=== PATIENT | male | born 1945 | race Caucasian/White ===

== ENCOUNTER → 2022-03-25 09:06 | Outpatient (CLI) | payer MEDICARE, BC, SELFPAY ==
--- NOTE | ~2022-03-25 | US_ITS ---
Renal-Bladder ultrasound Clinical History: Chronic kidney disease Technique: Real-time sonographic imaging of the kidneys and urinary bladder was performed. Findings: The right kidney measures 10.9 cm in length and the left kidney measures 10.7 cm. There is no hydronephrosis or renal calculus identified. Renal cortical echogenicity is within normal limits. Small bilateral renal cysts are noted. The urinary bladder is collapsed, limiting evaluation. Impression: No significant abnormality seen. Reviewed, dictated and finalized at location . OM[employer] SERVICE SALES ASSOCIATE Impression: No significant abnormality seen.
== END ==
PROVIDERS: PCP Physician Assistant; Visit Provider Internal Medicine Nephrology
DX: N18.31 Chronic kidney disease, stage 3a (principal)
CPT/HCPCS: 76775

== ENCOUNTER 2022-04-07 09:57 | Inpatient (IN) | payer MEDICARE, SELFPAY ==
[2022-04-07] VITALS (11 sets, daily range): BP systolic 127–198; BP diastolic 69–86; PULSE 64–109; RESP 14–21; TEMP 36.3–36.9; O2SAT 92–100; BMI 26.4
--- NOTE | ~2022-04-07 | NM_ITS ---
EXAMINATION: NM bone scan whole body DATE: 04/08/2022 15:35 INDICATION: Multiple pattern of sclerosis in the spine and pelvis on recent CT of the abdomen and pel vis. TECHNIQUE: 25.7 mCi Tc-99m HDP was administered intravenously. Delayed whole-body scintigrams were o btained. COMPARISON: CT abdomen pelvis dated 04/07/2022 FINDINGS: Typical pattern of mild joint centered uptake at the bilateral sternoclavicular, acromioclavicular an d elbow joints. Mild uptake at the anterolateral margin of the L5-S1 disc space and at the lateral ma rgins of a few of the lower thoracic disc spaces with corresponding bridging or nearly bridging osteo phytes consistent with diffuse idiopathic skeletal hyperostosis (DISH). No other suspicious foci of a bnormal bone activity or more diffuse abnormal increased uptake in the bone relative to the soft tiss ue to suggest metastatic disease. IMPRESSION: 1. No suspicious foci of abnormal bone activity or more diffuse abnormal increase bone uptake to sugg est metastatic disease. Reviewed, dictated and finalized at location A. OR BEAUTY SALON ASSISTANT IMPRESSION: 1. No suspicious foci of abnormal bone activity or more diffuse abnormal increa se bone uptake to suggest metastatic disease.
--- NOTE | ~2022-04-07 | US_ITS ---
EXAMINATION: US renal BI DATE: 04/08/2022 11:12 INDICATION: Acute renal insufficiency TECHNIQUE: Multiple ultrasound grayscale images of the kidneys were obtained. COMPARISON: 03/25/[address] dated 04/07/2022 FINDINGS: The right kidney measures 10.4 x 5.4 x 6.1 cm. The left kidney measures 11.1 x 6.2 x 5.7 cm. The kidn eys demonstrate normal echogenicity. Bilateral anechoic renal cysts the largest on the left measuring 2.5 cm and a smaller on the right measuring and 1.0 cm . There is no hydronephrosis in either kidney . No stones identified. The bladder is normal. IMPRESSION: 1. Bilateral renal cysts. Otherwise normal kidneys without hydronephrosis. Reviewed, dictated and finalized at location A. E SAMPLE AND PATTERN SUPERVISOR
--- NOTE | ~2022-04-07 | CT_ITS ---
EXAMINATION: CT abdomen pelvis wo con DATE: 04/07/2022 11:18 INDICATION: History of Crohn's disease. Abdomen pain. TECHNIQUE: Computed tomography (CT) of the abdomen and pelvis was performed without intravenous contr ast. The dose-length product was 351.70 mGy-cm. Automated exposure control and iterative reconstructi on technique were employed. COMPARISON: None. FINDINGS: There is abnormal thickening of the gastric antrum, pylorus and duodenum with mild surround ing inflammation, possibly related to patient's known Crohn's disease. No obstruction. There is a rig ht lower abdominal wall ileostomy. There are gallstones. Dependent atelectasis. Heart size normal. No significant pleural or pericardial effusion. Calcified g ranuloma in the left lower lobe. The liver, spleen, pancreas, adrenal glands and kidneys are unremarkable. Nonobstructive bowel patter n. No abnormal pelvic masses or fluid collections. There is a diffuse mottled appearance to the spine and sacrum. This may relate to demineralization, although metastatic disease is not excluded. IMPRESSION: 1. Abnormal thickening of the distal aspect of the stomach and duodenum, suspicious for inflammatory changes secondary to known Crohn's disease. No evidence for perforation or abscess. 2: Diffuse abnormal mottled appearance to the spine and pelvis, suspicious for metastatic disease. 3: Cholelithiasis Reviewed, dictated and finalized at location L. STANT BASEBALL COACH IMPRESSION: 1. Abnormal thickening of the distal aspect of the stomach and duodenum, suspic ious for inflammatory changes secondary to known Crohn's disease. No evidence f or perforation or abscess. 2: Diffuse abnormal mottled appearance to the spine and pelvis, suspicious for metastatic disease. 3: Cholelithiasis
--- NOTE | 2022-04-07 10:17 | ED.ABDPAIN ---
HPI - Abdominal Pain General Chief Complaint: Abdominal Pain Stated Complaint: vomiting solid foods Time Seen by Provider: 04/07/22 10:01 Source: patient and family Mode of arrival: ambulatory Limitations: no limitations History of Present Illness HPI narrative: Patient is a 76-year-old male with a history of hypertension, hyperlipidemia, Crohn's disease, history of colon resection and current ileostomy, presenting to the emergency department for evaluation of abdominal pain, intermittent nausea and vomiting. Pain has been intermittent over the past 72 hours, patient reports cramping type pain that comes and goes spontaneously. Not associate with eating. He has had decreased oral intake secondary to the nausea as well as presence of vomiting with dark-colored emesis. Patient reports stool has been dark in coloration. Patient denies history of GI bleed. He denies fever, chills, lightheadedness or dizziness. No chest pain or palpitations. No dyspnea. No cough. Patient denies any significant abdominal distention. He has had normal output from the ostomy although it is dark in coloration. He denies history of chronic anticoagulation. Patient does not follow with gastroenterology or colorectal physician. States that he had ileostomy placed in 1997, has done well since that time without any acute issues. He is not on any maintenance medications. Related Data Home Medications Medication Instructions Recorded Confirmed atorvastatin 10 mg tablet 10 mg PO DAILY 02/21/22 04/07/22 carvedilol 25 mg tablet 25 mg PO DAILY 02/21/22 04/07/22 fenofibrate nanocrystallized 145 145 mg PO DAILY 02/21/22 04/07/22 mg tablet multivitamin 1 tablet PO DAILY 04/07/22 04/07/22 Allergies Allergy/AdvReac Type Severity Reaction Status Date / Time No Known Allergies Allergy Verified 04/07/22 13:47 Review of Systems Review of Systems: CONSTITUTIONAL: Denies fever, chills, or sweats. EYES: Denies visual changes, redness, or discharge. ENT: Denies rhinorrhea, congestion, sore throat, or otalgia. CARDIOVASCULAR: Denies chest pain, palpitations, or edema. RESPIRATORY: Denies cough or dyspnea. GASTROINTESTINAL: Reports intermittent abdominal pain, nausea and vomiting, reports dark-colored stool GENITOURINARY: Denies dysuria or hematuria. SKIN: Denies rash or itching. MUSCULOSKELETAL: Denies back pain, joint pain, or myalgia. NEUROLOGIC: Denies headache, numbness, or weakness. [facility] Past Medical History Medical History (Updated 04/07/22 @ 12:38 by Denisa Hickey NP) Chronic kidney disease, stage 3a Crohn disease Hyperlipidemia Hypertension Perianal fistula due to Crohn's disease fistula repair times 8 Surgical History Surgical History (Updated 04/07/22 @ 12:39 by Denisa Hickey NP) Cataract extraction status H/O ileostomy History of appendectomy History of colon resection Family History Family History Father Diabetes mellitus Hypertension Grandparent Heart problem Hypertension Social History Social History (Updated 04/07/22 @ 12:41 by Denisa Hickey NP) Social History: lives with his she is poa .retired from at and [employer]. children 1. alcohol occ 1-2 beers a day code status : full code Smoking packs per day: 1 Smoking cigarettes per day: 20.0 Years smoked: 30 Smoking pack-years: 30.00 Smoking status: Former smoker Tobacco type: cigarettes Smoking end date: 03/16/02 Alcohol intake: current Drinks per week: 4 Substance use: never Lack of Transportation: No Lack of Food: Never True Current Housing: I Have Housing Concerned About Future Housing: No Difficulty Paying Gas/Electric Bills: No Difficulty Paying for Meds: No Currently Unemployed: No Education: High School Diploma/GED Difficulty w/ Childcare or Family Care: No Gender identity (if verbalized by the patient): Male Sexual Orientation (if Verbaliz
[2022-04-07 10:31] LABS: Basophils Percent Auto 0.1 % (0.2-1.2); Hematocrit 51.7 % (42.0-52.0); Hemoglobin 18.5 g/dL (14.0-18.0); Immature Granulocyte Absolute 0.06 K/mm3 (0.00-0.031); Immature Granulocyte Percent A 0.4 % (0-0.5); Lymphocytes Absolute Auto 1.28 K/mm3 (0.9-3.2); Lymphocytes Percent Auto 7.9 % (18.3-44.2); Mean Corpuscular HGB Conc 35.8 g/dl (32-36); Mean Corpuscular Volume 86.7 fl (80-100); Mean Platelet Volume 9.2 fl (7.4-10.4); Monocytes Absolute Auto 1.2 K/mm3 (0.1-0.6); Monocytes Percent Auto 7.1 % (2.6-8.5); Neutrophils Absolute Auto 13.7 K/mm3 (1.3-6.7); Neutrophils Percent Auto 84.5 % (45.5-73.1); Platelet Count Result 243 k/mm3 (150-375); Red Blood Count 5.96 M/mm3 (4.6-6.20); Red Cell Distribution Width 12.6 % (11.5-14.5); White Blood Count 16.3 K/mm3 (4.5-10.0)
[2022-04-07 10:47] LABS: Alanine Aminotransferase 28 U/L (6-50); Albumin Level 5.3 g/dL (3.5-5.1); Alkaline Phosphatase 79 U/L (38-126); Anion Gap 17 mmol/L (8-16); Aspartate Amino Transferase 31 U/L (17-59); Bilirubin,Total 0.9 mg/dL (0.2-1.3); Blood Urea Nitrogen 92 mg/dL (9-20); Calcium 9.2 mg/dL (8.4-10.2); Carbon Dioxide 11 mmol/L (22-30); Chloride 97 mmol/L (98-107); Estimated CRCL calculation 20 ml/min; Estimated Glomerular Filt Rate 23; Glucose 201 mg/dL (65-110); Lipase 219 U/L (23-300); Sodium 125 mmol/L (137-145)
[2022-04-07] MEDS: SODIUM CHLORIDE 0.9% IV 1,000 ML 999 ML IV CONT (11:01)
--- NOTE | 2022-04-07 11:15 | PC.NURSE ---
Report received from SOPHIA Hartman. Pt off floor to CT scan
[2022-04-07 11:33] LABS: Appearance Urine Clear (Clear); Bilirubin Urine Negative (Negative); Blood Urine Trace-lysed (Negative); Color Urine Yellow (Yellow); Glucose Urine UA Trace mg/dL (Negative); Ketones Urine Negative (Negative); Leukocyte Esterase Ur Negative LEU/UL (Negative); Nitrate Urine Negative (Negative); Protein Urine Trace mg/dL (Negative); Specific Grav Ur 1.015 (1.001-1.035); Urobilinogen Urine 0.2 mg/dL (<2.0); pH Urine 5.5 (5.0-9.0)
[2022-04-07 11:41] LABS: RBC Urine 0-2 /hpf (0-2); WBC Urine 0-3 /hpf
[2022-04-07 12:13] LABS: SARS-CoV-2 RNA PCR Negative
[2022-04-07 12:23] LABS: Add Urine Microscopic? YES
--- NOTE | 2022-04-07 12:33 | PM.IMHP ---
H&P: HPI History of Present Illness Date/Time: 04/07/22 12:33 Chief Complaint: Abdominal pain Narrative: This is a 76 year old male patient patient who has a hx of hypertension, hyperlipidemia, and crohns diseasse He also has a history of crf and sees a meat packager. He has a history of colon resection and current ileostomy. Over the last 72 hours he has complained of cramping type of abdomenal pain.He has been having emesis that is dark colored. he does not take any anticoagulation. The patient has had an ileostomy since 1997 has not been back to the GI doctor. The patient stated that he purposely lost 30 lb by using a a low carb diet. Me your to lose 30 lb. The patient has had poor oral intake due to the nausea. His white count is 16.3. Sodium was 125. Chloride 97 anion gap 17 BUN 92 and creatinine 2.7. According to Dr. Chacon cells note on 03/17/2022 patient's creatinine was 1.61 and GFR 42. The patient was given 2 L of IV fluids and his p.o. Coreg that was due this morning. Patient is negative for COVID. CT of the abdomen pelvis was read as the following . Abnormal thickening of the distal aspect of the stomach and duodenum, suspicious for inflammatory changes secondary to known Crohn's disease. No evidence for perforation or abscess. 2: Diffuse abnormal mottled appearance to the spine and pelvis, suspicious for metastatic disease. 3:? CholelithiasisThe patient is being admitted to inpatient services on the date of service of 04/07/2022 Review of Systems Review of Systems: See HPI All systems reviewed & are unremarkable except as noted in HPI and below Constitutional: Constitutional: Reports as per HPI and Reports no additional constitutional complaints Eyes: Eyes: Reports as per HPI and Reports no additional eye complaints ENT: Reports system reviewed and no additional complaints, except as documented and Reports Normal hearing present Cardiovascular: Cardiovascular: Reports no additional cardiovascular complaints Respiratory: Respiratory: Reports no additional respiratory complaints and Reports no additional respiratory complaints Gastrointestinal: Gastrointestinal: Reports as per HPI and Reports no additional gastrointestinal complaints Musculoskeletal: Musculoskeletal: Reports no additional musculoskeletal complaints Integumentary/Breasts: Skin/Breast: Reports system reviewed and no additional complaints, except as docu and Reports as per HPI Neurologic: Reports system reviewed and no additional complaints, except as documented, Reports as per HPI and Reports Normal hearing present Psychiatric: Psychiatric: Reports no additional psychiatric complaints and Reports as per HPI Endocrine: Endocrine: Reports no additional endocrine complaints Hematologic/Lymphatic: Hematologic/Lymphatic: Reports no additional hematologic/lymphatic complaints Allergic/Immunologic: Allergic/Immunologic: Reports no additional allergic/immunologic complaints [facility] Past Medical History Medical History (Updated 04/07/22 @ 14:50 by Denisa Hickey NP) Chronic kidney disease, stage 3a Crohn disease Hyperlipidemia Hypertension Perianal fistula due to Crohn's disease fistula repair times 8 Surgical History Surgical History Cataract extraction status H/O ileostomy History of appendectomy History of colon resection Family History Family History Father Diabetes mellitus Hypertension Grandparent Heart problem Hypertension Social History Social History (Updated 04/07/22 @ 14:40 by Denisa Hickey NP) Social History: He lives with his and she is poa .He is retired from [employer]. He has 1 child . He drinks 1-2 beers a day. code status : full code Smoking packs per day: 1 Smoking cigarettes per day: 20.0 Years smoked: 30 Smoking pack-years: 30.00 Smoking status: Former smoker Tobacco type: ci
[2022-04-07 13:08] LABS: Lactic Acid Reflex 1.7 mmol/L (0.7-2.0)
--- NOTE | 2022-04-07 13:25 | PC.NURSE ---
This patient, Jayy Collins, was admitted to 3 Med Surg Room 305-02. Patient/family oriented to hospital policies and general routines including ID bracelet, bed and alarms, visiting hours, pain management, procedures, bathroom and other care routines, personal items, smoking policy, room service/diet, and visiting hours. Information on how to activate the Rapid Response Team has been discussed. Patient/Family are encouraged to report perceived risks to care and to ask questions if they do not understand what they are told or what they should do.
[2022-04-07 13:26] LABS: Reflex Lactic Acid Yes or No Add Lactic
[2022-04-07] MEDS: LACTATED RINGERS 1,000 ML 125 ML IV CONT ×2 (14:27→21:49)
--- NOTE | 2022-04-07 14:37 | PM.CNNEP ---
Assessment and Plan Assessment and plan (1) LAILA (acute kidney injury): Code(s): N17.9 - Acute kidney failure, unspecified Status: Acute Assessment and Plan: history would suggest volume depletion/dehydration kidney function may have worsened with ongoing use of JUAN ALBERTO-I as well imaging without any obstruction check urine electrolytes, urine eosinophils and CPK continue IVF hydration follow repeat labs and UOP (2) Chronic kidney disease, stage 3a: Code(s): N18.31 - Chronic kidney disease, stage 3a Status: Chronic Assessment and Plan: apparently present as far back as 2014 baseline creatinine seems to run around 1. 4 - 1.6mg/dl although creatinine went as high as 2.0mg/dl in January 2022 which prompted referral to Dr. Manzanares presumably due to HTN and vascular disease based on outpatient evaluation (negative serologies and normal renal u/s) (3) Hyponatremia: Code(s): E87.1 - Hypo-osmolality and hyponatremia Status: Acute Assessment and Plan: as noted by admission labs likely secondary to hypovolemia follow trend with IVF resuscitation (4) Hypertension: Code(s): I10 - Essential (primary) hypertension Status: Acute Assessment and Plan: holding lisinopril for now remains on carvedilol follow trend of hemodyamics (5) Nausea vomiting and diarrhea: Code(s): R11.2 - Nausea with vomiting, unspecified; R19.7 - Diarrhea, unspecified Status: Acute Assessment and Plan: clinical improvement noted IVFs and IV antiementics as needed Will continue to follow. History of Present Illness Reason for Consult Consult date: 04/07/22 Reason for consult: acute renal failure (on chronic renal failure) Chief Complaint Chief complaint: gastritis,dehydration History of Present Illness Narrative: The patient is a 76-year-old male with a past medical history as outlined below who presented to [facility] Emergency room for further evaluation of nausea, vomiting, and abdominal pain. The patient states that for the last 2-3 days he has had nausea, vomiting, and diarrhea in association with abdominal pain. He also reports having dark-colored emesis as well. Along with the a for mentioned nausea and vomiting, he has had poor oral intake as well. Given the persistence of the symptoms despite conservative therapy, he presented to the emergency room for further assessment. Workup and evaluation emergency room demonstrated his CBC to be significant for an elevated white blood cell count of 16.3 as well as chemistry results that showed an elevated BUN and creatinine above his baseline in association with hyponatremia. Due to concerns for possible volume depletion, he received significant IV fluids in the emergency room as well as maintenance IV fluids. His testing from influenza and coping 19 were negative. He did undergo a CT scan of his abdomen pelvis given his GI symptoms which demonstrated inflammatory changes thought to be secondary to his known Crohn's disease with no evidence of perforation, abscess, or acute infection. There was the concerning finding of diffuse abnormal mottledl appearance of the spine and pelvis suspicious for metastatic disease. Given his constellation of symptoms as well as the aforementioned laboratory findings and imaging studies, he was admitted the hospital for further evaluation and therapy. Since admission, he states that he feels significantly better following the IV fluids and IV antiemetics that he has received. At the time my visit, he appears to be tolerating a clear liquid diet without any issues or problems related to nausea vomiting or diarrhea. Renal consultation was requested due to his acute kidney injury on top of his baseline kidney disease. The patient just recently established care with Dr. Brandon Manzanares with regard to management of his chronic kidney disease with a baseline c
[2022-04-07 14:59] LABS: Lactic Acid 1.9 mmol/L (0.7-2.0)
[2022-04-07] MEDS: carvediloL 25 MG TABLET PO (15:34)
[2022-04-07 19:19] LABS: Creatinine Urine 84.9 mg/dL; Total Protein Urine Random 11 mg/dL; Urea Random Urine 1127 MG/DL
[2022-04-07 19:34] LABS: Sodium Urine Random < 5 meq/L
[2022-04-07 19:35] LABS: Ur Ttl Prot Creatinine Ratio < 0.13 mg/mg (0-0.20)
[2022-04-07 19:38] LABS: Eosinophil Urine None Seen % (None Seen)
[2022-04-07 19:41] LABS: Urine Eos QC 2nd Tech Confirmed
[2022-04-07] MEDS: FAMOTIDINE 20 MG/2 ML VIAL IV PUSH (21:49)
[2022-04-08] VITALS (10 sets, daily range): BP systolic 128–155; BP diastolic 60–68; PULSE 58–83; RESP 16–20; TEMP 36.1–36.6; O2SAT 100
[2022-04-08] MEDS: LACTATED RINGERS 1,000 ML 125 ML IV CONT (05:57)
[2022-04-08 07:50] LABS: Creatinine Urine 81.5 mg/dL
[2022-04-08] MEDS: FAMOTIDINE 20 MG/2 ML VIAL IV PUSH ×2 (08:28→20:12)
[2022-04-08] MEDS: carvediloL 25 MG TABLET PO (08:28)
[2022-04-08 08:31] LABS: Basophils Percent Auto 0.5 % (0.2-1.2); Eosinophils Absolute Auto 0.1 K/mm3 (0-0.3); Eosinophils Percent Auto 0.6 % (0-4.4); Hematocrit 41.9 % (42.0-52.0); Hemoglobin 14.9 g/dL (14.0-18.0); Immature Granulocyte Absolute 0.02 K/mm3 (0.00-0.031); Immature Granulocyte Percent A 0.2 % (0-0.5); Lymphocytes Absolute Auto 1.42 K/mm3 (0.9-3.2); Lymphocytes Percent Auto 16.1 % (18.3-44.2); Mean Corpuscular HGB Conc 35.6 g/dl (32-36); Mean Corpuscular Hemoglobin 31.1 pg (26-34); Mean Corpuscular Volume 87.5 fl (80-100); Neutrophils Absolute Auto 6.3 K/mm3 (1.3-6.7); Neutrophils Percent Auto 71.6 % (45.5-73.1); Platelet Count Result 175 k/mm3 (150-375); Red Blood Count 4.79 M/mm3 (4.6-6.20); Red Cell Distribution Width 12.6 % (11.5-14.5); White Blood Count 8.8 K/mm3 (4.5-10.0)
[2022-04-08 08:50] LABS: Albumin Level 3.9 g/dL (3.5-5.1); Anion Gap 7 mmol/L (8-16); Blood Urea Nitrogen 74 mg/dL (9-20); Calcium 8.5 mg/dL (8.4-10.2); Carbon Dioxide 19 mmol/L (22-30); Chloride 105 mmol/L (98-107); Estimated CRCL calculation 27 ml/min; Estimated Glomerular Filt Rate 33; Glucose 94 mg/dL (65-110); Phosphorus 3.5 mg/dL (2.5-4.5); Potassium 4.4 mmol/L (3.4-5.0); Sodium 131 mmol/L (137-145)
[2022-04-08 09:10] LABS: Creatine Kinase 156 U/L (55-170); Lactate Dehydrogenase 141 U/L (120-246); Lipase 867 U/L (23-300)
[2022-04-08 09:22] LABS: Hemoglobin A1C 5.6 % (<5.7)
[2022-04-08 09:46] LABS: Thyroid Stimulating Hormone Reflex 0.396 uIU/mL (0.465-4.68)
--- NOTE | 2022-04-08 10:10 | P.PNIM_ITS ---
Progress Note: A&P Assessment and Plan (1) LAILA (acute kidney injury): Code(s): N17.9 - Acute kidney failure, unspecified Status: Acute Assessment and Plan: Acute on chronic. Patient with history of stage IIIA CKD with baseline creatinine around 1.4-1.6 per nephrology * Patient presented with complaints of diarrhea and 4 days of decreased oral intake, making dehydration most likely etiology * Will obtain renal ultrasound * Hold lisinopril * Creatinine has improved with IV fluids from 2.7 on presentation to 2.0 today. BUN trending down * Appreciate nephrology consultation * Monitor renal function closely (2) Nausea vomiting and diarrhea: Code(s): R11.2 - Nausea with vomiting, unspecified; R19.7 - Diarrhea, unspecified Status: Acute Assessment and Plan: Ongoing for 4 days prior to presentation * Resolved at this time and patient is tolerating clear liquids * CT of the abdomen/pelvis on presentation showed abnormal thickening of the distal aspect of the stomach and duodenum suspicious for inflammatory changes secondary to Crohn's disease. * Appreciate GI recommendations * Continue with IV fluid rehydration * Clear liquids as tolerated. Advance diet per GI recommendation * Infectious etiology considered and patient had marked leukocytosis on presenta tion, however this resolved without intervention and symptoms secondary to Crohn's disease more likely (3) Crohn disease: Code(s): K50.90 - Crohn's disease, unspecified, without complications Status: Acute Assessment and Plan: Patient is s/p colon resection and ileostomy in 1997 * He no longer follows with GI it is not maintained on any medications for Crohn's disease * CT scan with findings in the stomach and duodenum consistent with Crohn's as above * Appreciate GI consultation (4) Dark stools: Code(s): R19.5 - Other fecal abnormalities Status: Acute Assessment and Plan: Patient reported dark black, tarry stools prior to presentation * Concern for GI bleed in the setting of inflammatory findings in the stomach and duodenum * Obtain stool occult blood test * Appreciate GI recommendations * Patient is not anemic. H&H stable, however initial readings likely hemoconcentrated. Continue to monitor (5) Hyponatremia: Code(s): E87.1 - Hypo-osmolality and hyponatremia Status: Acute Assessment and Plan: Acute, likely secondary to dehydration * Sodium 125 on presentation * Improved to 131 this morning following IV fluid rehydration * Continue to trend sodium to ensure correcting at appropriate rate * Appreciate nephrology assistance (6) Abnormal CT of spine: Code(s): R93.7 - Abnormal findings on diagnostic imaging of other parts of musculoskeletal system Status: Acute Assessment and Plan: CT of the abdomen/pelvis revealed diffusely mottled appearance of the spine sacrum which may be related to demineralization with metastatic disease not excludable * Patient with no known malignancy * Patient denies weight loss, night sweats, other concerning symptoms. Reports intermittent, nonspecific back pain * Will check calcium and vitamin D levels * Check PSA * Proceed with nuclear medicine bone scan * Consider oncology evaluation based on results (7) Acute dehydration: Code(s): E86.0 - Dehydration Status: Acute Assessment and Plan: As noted above * Continue with IV fluid rehydration * Patient is tolerating clear liquids. Advance diet as tolerated pe
--- NOTE | 2022-04-08 10:10 | PM.IMPN ---
Progress Note: A&P Assessment and Plan (1) LAILA (acute kidney injury): Code(s): N17.9 - Acute kidney failure, unspecified Status: Acute Assessment and Plan: Acute on chronic. Patient with history of stage IIIA CKD with baseline creatinine around 1.4-1.6 per nephrology Patient presented with complaints of diarrhea and 4 days of decreased oral intake, making dehydration most likely etiology Will obtain renal ultrasound Hold lisinopril Creatinine has improved with IV fluids from 2.7 on presentation to 2.0 today. BUN trending down Appreciate nephrology consultation Monitor renal function closely (2) Nausea vomiting and diarrhea: Code(s): R11.2 - Nausea with vomiting, unspecified; R19.7 - Diarrhea, unspecified Status: Acute Assessment and Plan: Ongoing for 4 days prior to presentation Resolved at this time and patient is tolerating clear liquids CT of the abdomen/pelvis on presentation showed abnormal thickening of the distal aspect of the stomach and duodenum suspicious for inflammatory changes secondary to Crohn's disease. Appreciate GI recommendations Continue with IV fluid rehydration Clear liquids as tolerated. Advance diet per GI recommendation Infectious etiology considered and patient had marked leukocytosis on presentation, however this resolved without intervention and symptoms secondary to Crohn's disease more likely (3) Crohn disease: Code(s): K50.90 - Crohn's disease, unspecified, without complications Status: Acute Assessment and Plan: Patient is s/p colon resection and ileostomy in 1997 He no longer follows with GI it is not maintained on any medications for Crohn's disease CT scan with findings in the stomach and duodenum consistent with Crohn's as above Appreciate GI consultation (4) Dark stools: Code(s): R19.5 - Other fecal abnormalities Status: Acute Assessment and Plan: Patient reported dark black, tarry stools prior to presentation Concern for GI bleed in the setting of inflammatory findings in the stomach and duodenum Obtain stool occult blood test Appreciate GI recommendations Patient is not anemic. H&H stable, however initial readings likely hemoconcentrated. Continue to monitor (5) Hyponatremia: Code(s): E87.1 - Hypo-osmolality and hyponatremia Status: Acute Assessment and Plan: Acute, likely secondary to dehydration Sodium 125 on presentation Improved to 131 this morning following IV fluid rehydration Continue to trend sodium to ensure correcting at appropriate rate Appreciate nephrology assistance (6) Abnormal CT of spine: Code(s): R93.7 - Abnormal findings on diagnostic imaging of other parts of musculoskeletal system Status: Acute Assessment and Plan: CT of the abdomen/pelvis revealed diffusely mottled appearance of the spine sacrum which may be related to demineralization with metastatic disease not excludable Patient with no known malignancy Patient denies weight loss, night sweats, other concerning symptoms. Reports intermittent, nonspecific back pain Will check calcium and vitamin D levels Check PSA Proceed with nuclear medicine bone scan Consider oncology evaluation based on results (7) Acute dehydration: Code(s): E86.0 - Dehydration Status: Acute Assessment and Plan: As noted above Continue with IV fluid rehydration Patient is tolerating clear liquids. Advance diet as tolerated per GI recommendations (8) Hypertension: Code(s): I10 - Essential (primary) hypertension Status: Acute Assessment and Plan: Blood pressures are reasonably controlled Continue home carvedilol Lisinopril on hold due to LAILA Monitor BP trends Plan Discussed case with supervising physician Time Spent With Patient Time: 50 minutes on this encounter Time with patient: Greater than 35 minutes Subjective Date/t
[2022-04-08 10:55] LABS: Calcium 8.7 mg/dL (8.4-10.2)
[2022-04-08 11:15] LABS: Vitamin D 25 Hydroxy 28.9 ng/mL
[2022-04-08 11:39] LABS: Prostate Specific Antigen 0.6 ng/mL (< OR = 4.0)
--- NOTE | 2022-04-08 12:13 | PM.PNNEP ---
Progress Note: A&P Assessment and Plan (1) LAILA (acute kidney injury): Code(s): N17.9 - Acute kidney failure, unspecified Status: Acute Assessment and Plan: improving history would suggest volume depletion/dehydration kidney function may have worsened with ongoing use of JUAN ALBERTO-I as well imaging without any obstruction evaluation to date: renal ultrasound without obstruction urine electrolytes are prerenal urine eosinophils negative CPK normal wean off IVF hydration as ora intake improved holding lisinopril for now follow repeat labs and UOP (2) Chronic kidney disease, stage 3a: Code(s): N18.31 - Chronic kidney disease, stage 3a Status: Chronic Assessment and Plan: apparently present as far back as 2014 baseline creatinine seems to run around 1. 4 - 1.6mg/dl although creatinine went as high as 2.0mg/dl in January 2022 which prompted referral to Dr. Manzanares presumably due to HTN and vascular disease based on outpatient evaluation (negative serologies and normal renal u/s) (3) Hyponatremia: Code(s): E87.1 - Hypo-osmolality and hyponatremia Status: Acute Assessment and Plan: resolved as noted by admission labs likely secondary to hypovolemia follow trend with IVF resuscitation (4) Nausea vomiting and diarrhea: Code(s): R11.2 - Nausea with vomiting, unspecified; R19.7 - Diarrhea, unspecified Status: Acute Assessment and Plan: clinical improvement noted suspect viral gastroenteritis IVFs and IV antiementics as needed (5) Hypertension: Code(s): I10 - Essential (primary) hypertension Status: Acute Assessment and Plan: holding lisinopril for now remains on carvedilol follow trend of hemodyamics Will continue to follow. Subjective Date/time seen: 04/08/22 12:13 Nausea and vomiting appears to be doing better in general; tolerating oral intake without any further issues or problems; renal function continues to slowly improve with current interventions; no issues/events overnight or earlier this AM; no apparent distress noted. Exam Narrative: General: WD/WN male in NAD Heart: normal S1 and S2; no rub Lungs: clear to auscultation Abdomen: soft, nontender, nondistended, positive bowel sounds Extremities: no cyanosis or clubbing; no edema Skin: warm and dry Objective Data Vital Signs Vital Signs: Vital Signs Temp Pulse Resp BP Pulse Ox O2 Del Method 04/08/22 12:00 58 L 04/08/22 08:00 61 04/08/22 08:00 Room Air 04/08/22 08:28 65 04/08/22 06:00 97.0 F L 76 16 155/68 H 100 04/08/22 04:00 68 04/08/22 00:00 83 04/07/22 20:00 77 16 100 Room Air 04/07/22 22:00 97.8 F 77 16 151/69 H 100 04/07/22 20:00 64 Intake/Output Intake/Output: Intake & Output 04/05/22 04/06/22 04/07/22 04/08/22 23:59 23:59 23:59 23:59 Intake Total 2770 2440 Output Total 650 Balance 2770 1790 Meds/Results Medications: Active Medications Generic Name Dose Route Start Last Admin Trade Name Freq PRN Reason Stop Dose Admin Acetaminophen 650 mg 04/07/22 12:18 Acetaminophen 325 Mg Tablet PO Q4H PRN Mild Pain (1-3) or Fever Atorvastatin Calcium 10 mg 04/09/22 09:00 Atorvastatin 10 Mg Tablet PO DAILY BRIAN Carvedilol 25 mg 04/08/22 09:00 04/08/22 08:28 Carvedilol 25 Mg Tablet PO 25 mg DAILY BRIAN Administration Famotidine 20 mg 04/07/22 21:00 04/08/22 08:28 Famotidine 20 Mg/2 Ml Vial IV PUSH 20 mg Q12HR BRIAN Administration Fenofibrate 145 mg 04/09/22 09:00 Fenofibrate Nanocrystallized 145 Mg Tablet PO DAILY BRIAN Lactated Ringer's 1,000 mls @ 100 mls/hr 04/07/22 12:20 04/08/22 16:52 Lr - Lactated Ringers Iv IV CONT 100 mls/hr .Q10H BRIAN Administration Ondansetron HCl 4 mg 04/07/22 12:18 Ondansetron Inj 4 Mg/2 Ml Vial IV PUSH
--- NOTE | 2022-04-08 12:13 | P.PNNP_ITS ---
Progress Note: A&P Assessment and Plan (1) LAILA (acute kidney injury): Code(s): N17.9 - Acute kidney failure, unspecified Status: Acute Assessment and Plan: * improving * history would suggest volume depletion/dehydration * kidney function may have worsened with ongoing use of JUAN ALBERTO-I as well * imaging without any obstruction * evaluation to date: * renal ultrasound without obstruction * urine electrolytes are prerenal * urine eosinophils negative * CPK normal * wean off IVF hydration as ora intake improved * holding lisinopril for now * follow repeat labs and UOP (2) Chronic kidney disease, stage 3a: Code(s): N18.31 - Chronic kidney disease, stage 3a Status: Chronic Assessment and Plan: * apparently present as far back as 2014 * baseline creatinine seems to run around 1. 4 - 1.6mg/dl * although creatinine went as high as 2.0mg/dl in January 2022 which pr ompted referral to Dr. Manzanares * presumably due to HTN and vascular disease based on outpatient evaluation (negative serologies and normal renal u/s) (3) Hyponatremia: Code(s): E87.1 - Hypo-osmolality and hyponatremia Status: Acute Assessment and Plan: * resolved * as noted by admission labs * likely secondary to hypovolemia * follow trend with IVF resuscitation (4) Nausea vomiting and diarrhea: Code(s): R11.2 - Nausea with vomiting, unspecified; R19.7 - Diarrhea, unspecified Status: Acute Assessment and Plan: * clinical improvement noted * suspect viral gastroenteritis * IVFs and IV antiementics as needed (5) Hypertension: Code(s): I10 - Essential (primary) hypertension Status: Acute Assessment and Plan: * holding lisinopril for now * remains on carvedilol * follow trend of hemodyamics Will continue to follow. Subjective Date/time seen: 04/08/22 12:13 Nausea and vomiting appears to be doing better in general; tolerating oral intake without any further issues or problems; renal function continues to slowly improve with current interventions; no issues/events overnight or earlier this AM; no apparent distress noted. Exam Narrative: General: WD/WN male in NAD Heart: normal S1 and S2; no rub Lungs: clear to auscultation Abdomen: soft, nontender, nondistended, positive bowel sounds Extremities: no cyanosis or clubbing; no edema Skin: warm and dry Objective Data Vital Signs Vital Signs: Vital Signs Temp Pulse Resp BP Pulse Ox O2 Del Method 04/08/22 12:00 58 L 04/08/22 08:00 61 04/08/22 08:00 Room Air 04/08/22 08:28 65 04/08/22 06:00 97.0 F L 76 16 155/68 H 100 04/08/22 04:00 68 04/08/22 00:00 83 04/07/22 20:00 77 16 100 Room Air 04/07/22 22:00 97.8 F 77 16 151/69 H 100 04/07/22 20:00 64 Intake/Output Intake/Output: Intake & Output 04/05/22 04/06/22 04/07/22 04/08/22 23:59 23:59 23:59 23:59 Intake Total 2770 2440 Output Total 650 Balance 2770 1790 Meds/Results Medications: Active Medications Generic Name Dose Route Start Last Admin Trade Name Freq PRN Reason Stop D
[2022-04-08 13:13] LABS: Free T4 Free Thyroxine Reflex 1.34 ng/dL (0.78-2.19)
[2022-04-08 14:32] LABS: IFOB Positive Control Positive; Immunochemical Fecal Occult Bl Negative (N)
--- NOTE | 2022-04-08 16:04 | WPDGICN ---
Assessment and Plan Assessment and plan (1) Nausea vomiting and diarrhea: Code(s): R11.2 - Nausea with vomiting, unspecified; R19.7 - Diarrhea, unspecified Status: Acute Assessment and Plan: probably gastroenteritis, already feeling better and no more nausea he says that has not had any problem with Crohn's since his surgery and has not been on medical treatment gi prophylaxis, iv fluids will advance diet we can do EGD as outpatient given inflammation by CT scan (report of dark emesis however h/h is normal- actually hemoconcentrated on arrival from dehydration and now back down to normal limits)- monitor for bleeding (2) Acute on chronic renal failure: Code(s): N17.9 - Acute kidney failure, unspecified; N18.9 - Chronic kidney disease, unspecified Status: Acute Assessment and Plan: improving (3) Dehydration: Code(s): E86.0 - Dehydration Status: Acute Assessment and Plan: s/p fluids, better (4) Gastritis: Code(s): K29.70 - Gastritis, unspecified, without bleeding Status: Acute Assessment and Plan: gi prophylaxis egd (5) Abnormal CT scan, gastrointestinal tract: Code(s): R93.3 - Abnormal findings on diagnostic imaging of other parts of digestive tract Status: Acute (6) H/O ileostomy: Code(s): Z98.890 - Other specified postprocedural states Status: Acute Assessment and Plan: remote h/o crohn's GI Consult Note Consult date/time: 04/08/22 16:04 Reason for consult: n/v, history of Crohn's HPI: Jayy Collins is a 76 year old male with history of Crohn's that required colectomy with ileostomy in 1997, he says that never used any biologics or had any more complications from Crohn's (previous to surgery also had what it seems to be anal fistula but treated with surgery and no more issues). He also has CKD stage 3, creat 1.5, HTN. He came here with almost 4 days of new onset of nausea, vomiting and unable to keep food down, output through ileostomy unchanged (always liquid) and became dehydrated with generalized weakness, also noted dark colored emesis and admitted to hospital. He was found to have LAILA with creat 2.7, dehydrated. CT scan reviewed, Abnormal thickening of the distal aspect of the stomach and duodenum, diffuse abnormal mottled appearance to the spine and pelvis, suspicious for metastatic disease, cholelithiasis. This was followed by bone scan that was normal. He is already feeling much better and renal function is improving. Review of Systems Constitutional: Constitutional: Reports fatigue Eyes: Eyes: Denies blurry vision ENT: Reports Normal hearing present Cardiovascular: Cardiovascular: Denies chest pain Respiratory: Respiratory: Denies chest congestion Gastrointestinal: Gastrointestinal: Reports nausea and Reports vomiting Genitourinary: Genitourinary: Denies dysuria Musculoskeletal: Musculoskeletal: Denies arthralgias Integumentary/Breasts: Skin/Breast: Denies dry skin Neurologic: Denies Abnormal speech present Psychiatric: Psychiatric: Denies behavioral changes [facility] Past Medical History Medical History (Updated 04/08/22 @ 16:11 by Omari Garcia MD) Abnormal CT scan, gastrointestinal tract Acute on chronic renal failure Chronic kidney disease, stage 3a Crohn disease Dehydration Hyperlipidemia Hypertension Perianal fistula due to Crohn's disease fistula repair times 8 Surgical History Surgical History (Updated 04/08/22 @ 16:11 by Omari Garcia MD) Cataract extraction status H/O ileostomy History of appendectomy History of colon resection Family History Family History Father Diabetes mellitus Hypertension Grandparent Heart problem Hypertension Social History Social History (Updated 04/07/22 @ 14:40 by Denisa Hickey NP) Social History: He lives with his and she is poa .He
[2022-04-08 16:20] LABS: Sodium 130 mmol/L (137-145)
[2022-04-08] MEDS: LACTATED RINGERS 1,000 ML 100 ML IV CONT (16:52)
[2022-04-08 23:04] LABS: Total Triiodothyronine (T3) 0.89 NG/ML (0.97-1.69)
[2022-04-09] VITALS: PULSE 62
[2022-04-09] MEDS: LACTATED RINGERS 1,000 ML 100 ML IV CONT (03:09)
[2022-04-09 04:00] VITALS: PULSE 71
[2022-04-09 06:00] VITALS: BP 130/55; PULSE 70; RESP 17; TEMP 36.6; O2SAT 99
[2022-04-09 06:31] LABS: Hematocrit 39.4 % (42.0-52.0); Mean Corpuscular HGB Conc 35.5 g/dl (32-36); Mean Corpuscular Hemoglobin 31.2 pg (26-34); Mean Corpuscular Volume 87.8 fl (80-100); Platelet Count Result 135 k/mm3 (150-375); Red Blood Count 4.49 M/mm3 (4.6-6.20); Red Cell Distribution Width 12.4 % (11.5-14.5)
[2022-04-09 06:46] LABS: Anion Gap 4 mmol/L (8-16); Blood Urea Nitrogen 57 mg/dL (9-20); Calcium 8.7 mg/dL (8.4-10.2); Carbon Dioxide 20 mmol/L (22-30); Chloride 107 mmol/L (98-107); Estimated CRCL calculation 34 ml/min; Estimated Glomerular Filt Rate 42; Glucose 89 mg/dL (65-110); Potassium 3.8 mmol/L (3.4-5.0); Sodium 131 mmol/L (137-145)
[2022-04-09 08:00] VITALS: PULSE 64
[2022-04-09 08:25] VITALS: PULSE 72
[2022-04-09] MEDS: carvediloL 25 MG TABLET PO (08:25)
[2022-04-09] MEDS: FENOFIBRATE NANOCRYSTALLIZED 145 MG TABLET PO (08:25)
[2022-04-09] MEDS: FAMOTIDINE 20 MG/2 ML VIAL IV PUSH (08:25)
[2022-04-09] MEDS: ATORVASTATIN 10 MG TABLET PO (08:25)
--- NOTE | 2022-04-09 10:45 | PM.DS ---
DS: Admitting Diagnosis Discharge Date 04/09/2022 1045 Admitting Diagnosis acute kidney injury, possible exacerbation of Crohn's disease DS: Discharge Diagnosis Discharge Diagnosis (1) LAILA (acute kidney injury): Code(s): N17.9 - Acute kidney failure, unspecified Status: Acute Assessment and Plan: Acute on chronic. Patient with history of stage IIIA CKD with baseline creatinine around 1.4-1.6 per nephrology Patient presented with complaints of diarrhea and 4 days of decreased oral intake, making dehydration most likely etiology Will obtain renal ultrasound Hold lisinopril Creatinine has improved with IV fluids from 2.7 on presentation to 2.0 today. BUN/Cr 57/1.60 Appreciate nephrology consultation Monitor renal function closely (2) Nausea vomiting and diarrhea: Code(s): R11.2 - Nausea with vomiting, unspecified; R19.7 - Diarrhea, unspecified Status: Acute Assessment and Plan: Ongoing for 4 days prior to presentation Resolved at this time and patient is tolerating clear liquids CT of the abdomen/pelvis on presentation showed abnormal thickening of the distal aspect of the stomach and duodenum suspicious for inflammatory changes secondary to Crohn's disease. Appreciate GI recommendations Continue with IV fluid rehydration Clear liquids as tolerated. Advance diet per GI recommendation Infectious etiology considered and patient had marked leukocytosis on presentation, however this resolved without intervention and symptoms secondary to Crohn's disease more likely (3) Crohn disease: Code(s): K50.90 - Crohn's disease, unspecified, without complications Status: Acute Assessment and Plan: Patient is s/p colon resection and ileostomy in 1997 He no longer follows with GI it is not maintained on any medications for Crohn's disease CT scan with findings in the stomach and duodenum consistent with Crohn's as above Appreciate GI consultation (4) Dark stools: Code(s): R19.5 - Other fecal abnormalities Status: Acute Assessment and Plan: Patient reported dark black, tarry stools prior to presentation Concern for GI bleed in the setting of inflammatory findings in the stomach and duodenum Obtain stool occult blood test Appreciate GI recommendations Patient is not anemic. H&H stable, however initial readings likely hemoconcentrated. Continue to monitor (5) Hyponatremia: Code(s): E87.1 - Hypo-osmolality and hyponatremia Status: Acute Assessment and Plan: Acute, likely secondary to dehydration Sodium 125 on presentation Improved to 131 this morning following IV fluid rehydration Continue to trend sodium to ensure correcting at appropriate rate Appreciate nephrology assistance (6) Abnormal CT of spine: Code(s): R93.7 - Abnormal findings on diagnostic imaging of other parts of musculoskeletal system Status: Acute Assessment and Plan: CT of the abdomen/pelvis revealed diffusely mottled appearance of the spine sacrum which may be related to demineralization with metastatic disease not excludable Patient with no known malignancy Patient denies weight loss, night sweats, other concerning symptoms. Reports intermittent, nonspecific back pain Will check calcium and vitamin D levels Check PSA Proceed with nuclear medicine bone scan Consider oncology evaluation based on results (7) Acute dehydration: Code(s): E86.0 - Dehydration Status: Acute Assessment and Plan: As noted above Continue with IV fluid rehydration Patient is tolerating clear liquids. Advance diet as tolerated per GI recommendations (8) Hypertension: Code(s): I10 - Essential (primary) hypertension Status: Acute Assessment and Plan: Blood pressures are reasonably contr
--- NOTE | 2022-04-09 10:45 | P.DS_ITS ---
DS: Admitting Diagnosis Discharge Date 04/09/2022 1045 Admitting Diagnosis acute kidney injury, possible exacerbation of Crohn's disease DS: Discharge Diagnosis Discharge Diagnosis (1) LAILA (acute kidney injury): Code(s): N17.9 - Acute kidney failure, unspecified Status: Acute Assessment and Plan: Acute on chronic. Patient with history of stage IIIA CKD with baseline creatinine around 1.4-1.6 per nephrology * Patient presented with complaints of diarrhea and 4 days of decreased oral intake, making dehydration most likely etiology * Will obtain renal ultrasound * Hold lisinopril * Creatinine has improved with IV fluids from 2.7 on presentation to 2.0 today. BUN/Cr 57/1.60 * Appreciate nephrology consultation * Monitor renal function closely (2) Nausea vomiting and diarrhea: Code(s): R11.2 - Nausea with vomiting, unspecified; R19.7 - Diarrhea, unspecified Status: Acute Assessment and Plan: Ongoing for 4 days prior to presentation * Resolved at this time and patient is tolerating clear liquids * CT of the abdomen/pelvis on presentation showed abnormal thickening of the distal aspect of the stomach and duodenum suspicious for inflammatory changes secondary to Crohn's disease. * Appreciate GI recommendations * Continue with IV fluid rehydration * Clear liquids as tolerated. Advance diet per GI recommendation * Infectious etiology considered and patient had marked leukocytosis on presentation, however this resolved without intervention and symptoms secondary to Crohn's disease more likely (3) Crohn disease: Code(s): K50.90 - Crohn's disease, unspecified, without complications Status: Acute Assessment and Plan: Patient is s/p colon resection and ileostomy in 1997 * He no longer follows with GI it is not maintained on any medications for Crohn's disease * CT scan with findings in the stomach and duodenum consistent with Crohn's as above * Appreciate GI consultation (4) Dark stools: Code(s): R19.5 - Other fecal abnormalities Status: Acute Assessment and Plan: Patient reported dark black, tarry stools prior to presentation * Concern for GI bleed in the setting of inflammatory findings in the stomach and duodenum * Obtain stool occult blood test * Appreciate GI recommendations * Patient is not anemic. H&H stable, however initial readings likely hemoconcentrated. Continue to monitor (5) Hyponatremia: Code(s): E87.1 - Hypo-osmolality and hyponatremia Status: Acute Assessment and Plan: Acute, likely secondary to dehydration * Sodium 125 on presentation * Improved to 131 this morning following IV fluid rehydration * Continue to trend sodium to ensure correcting at appropriate rate * Appreciate nephrology assistance (6) Abnormal CT of spine: Code(s): R93.7 - Abnormal findings on diagnostic imaging of other parts of musculoskeletal system Status: Acute Assessment and Plan: CT of the abdomen/pelvis revealed diffusely mottled appearance of the spine sacrum which may be related to demineralization with metastatic disease not excludable * Patient with no known malignancy * Patient denies weight loss, night sweats, other concerning symptoms. Reports intermittent, nonspecific back pain * Will check calcium and vitamin D levels
--- NOTE | 2022-04-09 11:01 | P.PNNP_ITS ---
Progress Note: A&P Assessment and Plan (1) LAILA (acute kidney injury): Code(s): N17.9 - Acute kidney failure, unspecified Status: Acute Assessment and Plan: * improving * history would suggest volume depletion/dehydration * kidney function may have worsened with ongoing use of JUAN ALBERTO-I as well * imaging without any obstruction * evaluation to date: * renal ultrasound without obstruction * urine electrolytes are prerenal * urine eosinophils negative * CPK normal * tolerating oral intake * holding lisinopril for now * follow repeat labs and UOP (2) Chronic kidney disease, stage 3a: Code(s): N18.31 - Chronic kidney disease, stage 3a Status: Chronic Assessment and Plan: * apparently present as far back as 2014 * baseline creatinine seems to run around 1. 4 - 1.6mg/dl * although creatinine went as high as 2.0mg/dl in January 2022 which prompted referral to Dr. Manzanares * presumably due to HTN and vascular disease based on outpatient evaluation (negative serologies and normal renal u/s) (3) Hyponatremia: Code(s): E87.1 - Hypo-osmolality and hyponatremia Status: Acute Assessment and Plan: * resolving * as noted by admission labs * likely secondary to hypovolemia * follow trend with IVF resuscitation (4) Nausea vomiting and diarrhea: Code(s): R11.2 - Nausea with vomiting, unspecified; R19.7 - Diarrhea, unspecified Status: Acute Assessment and Plan: * clinical improvement noted * suspect viral gastroenteritis * IVFs and IV antiementics as needed (5) Hypertension: Code(s): I10 - Essential (primary) hypertension Status: Acute Assessment and Plan: * holding lisinopril for now * remains on carvedilol * follow trend of hemodyamics Will continue to follow. Subjective Date/time seen: 04/09/22 11:01 Continue to improve with supportive therapy/interventions -- renal function has improved to baseline with reasonable urine output and stable electrolytes; seen by GI yesterday with recommendations noted; overall, feels significantly better with no further nausea or vomiting in the last 24 - 48 hours. Exam Narrative: General: WD/WN male in NAD Heart: normal S1 and S2; no rub Lungs: clear to auscultation Abdomen: soft, nontender, nondistended, positive bowel sounds Extremities: no cyanosis or clubbing; no edema Skin: warm and intact Objective Data Vital Signs Vital Signs: Vital Signs Temp Pulse Resp BP Pulse Ox O2 Del Method 04/09/22 08:25 Room Air 04/09/22 08:25 72 04/09/22 06:00 97.8 F 70 17 130/55 L 99 04/09/22 04:00 71 04/09/22 00:00 62 04/08/22 20:00 79 04/08/22 22:00 97.3 F L 64 18 128/65 100 04/08/22 20:00 61 20 100 Room Air 04/08/22 16:00 61 04/08/22 14:07 97.8 F 60 20 134/60 100 Intake/Output Intake/Output: Intake & Output 04/06/22 04/07/22 04/08/22 04/09/22 23:59 23:59 23:59 23:59 Intake Total 2770 3580 1476 Output Total 900 1600 Balance 2770 1420 -124 Meds/Results Medications: Active Medications Generic Name Dose Route Start Last Admin
--- NOTE | 2022-04-09 11:01 | PM.PNNEP ---
Progress Note: A&P Assessment and Plan (1) LAILA (acute kidney injury): Code(s): N17.9 - Acute kidney failure, unspecified Status: Acute Assessment and Plan: improving history would suggest volume depletion/dehydration kidney function may have worsened with ongoing use of JUAN ALBERTO-I as well imaging without any obstruction evaluation to date: renal ultrasound without obstruction urine electrolytes are prerenal urine eosinophils negative CPK normal tolerating oral intake holding lisinopril for now follow repeat labs and UOP (2) Chronic kidney disease, stage 3a: Code(s): N18.31 - Chronic kidney disease, stage 3a Status: Chronic Assessment and Plan: apparently present as far back as 2014 baseline creatinine seems to run around 1. 4 - 1.6mg/dl although creatinine went as high as 2.0mg/dl in January 2022 which prompted referral to Dr. Manzanares presumably due to HTN and vascular disease based on outpatient evaluation (negative serologies and normal renal u/s) (3) Hyponatremia: Code(s): E87.1 - Hypo-osmolality and hyponatremia Status: Acute Assessment and Plan: resolving as noted by admission labs likely secondary to hypovolemia follow trend with IVF resuscitation (4) Nausea vomiting and diarrhea: Code(s): R11.2 - Nausea with vomiting, unspecified; R19.7 - Diarrhea, unspecified Status: Acute Assessment and Plan: clinical improvement noted suspect viral gastroenteritis IVFs and IV antiementics as needed (5) Hypertension: Code(s): I10 - Essential (primary) hypertension Status: Acute Assessment and Plan: holding lisinopril for now remains on carvedilol follow trend of hemodyamics Will continue to follow. Subjective Date/time seen: 04/09/22 11:01 Continue to improve with supportive therapy/interventions -- renal function has improved to baseline with reasonable urine output and stable electrolytes; seen by GI yesterday with recommendations noted; overall, feels significantly better with no further nausea or vomiting in the last 24 - 48 hours. Exam Narrative: General: WD/WN male in NAD Heart: normal S1 and S2; no rub Lungs: clear to auscultation Abdomen: soft, nontender, nondistended, positive bowel sounds Extremities: no cyanosis or clubbing; no edema Skin: warm and intact Objective Data Vital Signs Vital Signs: Vital Signs Temp Pulse Resp BP Pulse Ox O2 Del Method 04/09/22 08:25 Room Air 04/09/22 08:25 72 04/09/22 06:00 97.8 F 70 17 130/55 L 99 04/09/22 04:00 71 04/09/22 00:00 62 04/08/22 20:00 79 04/08/22 22:00 97.3 F L 64 18 128/65 100 04/08/22 20:00 61 20 100 Room Air 04/08/22 16:00 61 04/08/22 14:07 97.8 F 60 20 134/60 100 Intake/Output Intake/Output: Intake & Output 04/06/22 04/07/22 04/08/22 04/09/22 23:59 23:59 23:59 23:59 Intake Total 2770 3580 1476 Output Total 900 1600 Balance 2770 2680 -124 Meds/Results Medications: Active Medications Generic Name Dose Route Start Last Admin Trade Name Freq PRN Reason Stop Dose Admin Acetaminophen 650 mg 04/07/22 12:18 Acetaminophen 325 Mg Tablet PO Q4H PRN Mild Pain (1-3) or Fever Atorvastatin Calcium 10 mg 04/09/22 09:00 04/09/22 08:25 Atorvastatin 10 Mg Tablet PO 10 mg DAILY BRIAN Administration Carvedilol 25 mg 04/08/22 09:00 04/09/22 08:25 Carvedilol 25 Mg Tablet PO 25 mg DAILY BRIAN Administration Famotidine 20 mg 04/07/22 21:00 04/09/22 08:25 Famotidine 20 Mg/2 Ml Vial IV PUSH 20 mg Q12HR BRIAN Administration Fenofibrate 145 mg 04/09/22 09:00 04/09/22 08:25 Fenofibrate Nanocrystallized 145 Mg Tablet PO 145 mg DAILY BRIAN Administration Lactated Ringer's 1,000 mls @ 100 mls/hr 04/09/22 11:15 Lr - Lactated Ringers Iv IV CONT .Q10H BRIAN Ondansetron
[2022-04-13 18:12] LABS: Chloride Rand Ur 29 mmol/L (32-290); Chloride/Creatinine Rand Ur 35 (23-275); Creatinine Random Urine 82 mg/dL (20-320)
== END 2022-04-09 12:40 | disposition home or self-care (01) | DRG 386 ==
LOC: ANHED 12:29 → ANH3MEDSUR 12:51
PROVIDERS: Internal Medicine Nephrology; Nurse Practitioner; Physician Assistant; Admitting Provider Student in an Organized Health Care Education/Training Program; Emergency Provider Emergency Medicine; PCP Physician Assistant; Visit Provider Nurse Practitioner
DX: K50.90 Crohn's disease, unspecified, without complications (principal); E87.1 Hypo-osmolality and hyponatremia; N17.9 Acute kidney failure, unspecified; E86.0 Dehydration; E78.5 Hyperlipidemia, unspecified; I12.9 Hypertensive chronic kidney disease with stage 1 through stage 4 chronic kidney disease, or unspecified chronic kidney disease; N18.31 Chronic kidney disease, stage 3a; R93.7 Abnormal findings on diagnostic imaging of other parts of musculoskeletal system; Z20.822 Contact with and (suspected) exposure to COVID-19; Z93.2 Ileostomy status; Z90.49 Acquired absence of other specified parts of digestive tract; Z87.891 Personal history of nicotine dependence
CPT/HCPCS: 36415; 74176; 76775; 78306; 80048; 80053; 80069; 81001; 81050; 82274; 82306; 82310; 82436; 82550; 82570; 83036; 83605; 83615; 83690; 83735; 84153; 84156; 84295; 84300; 84439; 84443; 84480; 84540; 85025; 85027; 85999; 86850; 86900; 86901; 87040; 96360; 99285; A9270; A9503; J7030; J7120; U0003; U0005

== ENCOUNTER 2022-04-20 07:46 | Inpatient (IN) | payer MEDICARE, SELFPAY ==
[2022-04-20] VITALS (21 sets, daily range): BP systolic 130–163; BP diastolic 56–92; PULSE 79–104; RESP 12–25; TEMP 36.4–36.6; O2SAT 97–100; BMI 25.8
--- NOTE | ~2022-04-20 | CT_ITS ---
EXAMINATION: CT abdomen pelvis wo con DATE: 04/20/2022 08:54 INDICATION: Severe abdominal pain, dry heaving. TECHNIQUE: Computed tomography (CT) of the abdomen and pelvis was performed without intravenous contr ast. Automated exposure control and iterative reconstruction technique were employed. Exam dose: 354 .70 mGy-cm total exam DLP. COMPARISON: April 07, 2022 CT abdomen pelvis April 08, 2022 bilateral renal ultrasound examination April 08, 2022 radionuclide bone scan FINDINGS: The lung bases are clear of consolidation. Left lower lobe calcified pulmonary granuloma. M inimal bilateral lower lobe dependent atelectasis. Normal heart size. No pericardial or pleural effusion. Small sliding hiatal hernia. Multiple gallstones. Borderline gallbladder wall thickness. No pericholecystic fluid or fat stranding . No bile duct or pancreatic duct dilatation. No hepatic or pancreatic space-occupying mass lesion is detected. Normal splenic size. Normal morphology of the adrenal glands. 2.5 cm hypoattenuating lesion of the anteromedial mid to upper left kidney corresponds to a sonograph ic sonolucent lesion consistent with cyst noted on April 08, 2022 renal ultrasound examination. No urinary tract calculus or hydroureteronephrosis. There is prostate enlargement and calcification. The urinary bladder is unremarkable. There is calcification of the abdominal aorta and prominent calcification of the superior mesenteric artery. No abdominal aortic aneurysm. Status post colectomy with right lower quadrant ostomy. No bowel obstruction or intraperitoneal free air is detected. 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 Multilevel lumbar degenerative disc disease, most prominent at L4-5. IMPRESSION: Status post colectomy, with moderate lower quadrant ostomy Small sliding hiatal hernia Cholelithiasis Renal cysts Prostate enlargement Reviewed, dictated and finalized at [facility]. Reviewed, dictated and finalized at [facility]. E REELER
[2022-04-20 08:24] LABS: Basophils Percent Auto 0.2 % (0.2-1.2); Hematocrit 53.7 % (42.0-52.0); Hemoglobin 18.9 g/dL (14.0-18.0); Immature Granulocyte Absolute 0.07 K/mm3 (0.00-0.031); Immature Granulocyte Percent A 0.4 % (0-0.5); Lymphocytes Absolute Auto 0.83 K/mm3 (0.9-3.2); Lymphocytes Percent Auto 5.2 % (18.3-44.2); Mean Corpuscular HGB Conc 35.2 g/dl (32-36); Mean Corpuscular Hemoglobin 31.4 pg (26-34); Mean Corpuscular Volume 89.4 fl (80-100); Mean Platelet Volume 9.3 fl (7.4-10.4); Monocytes Absolute Auto 0.2 K/mm3 (0.1-0.6); Monocytes Percent Auto 1.1 % (2.6-8.5); Neutrophils Absolute Auto 14.9 K/mm3 (1.3-6.7); Neutrophils Percent Auto 93.1 % (45.5-73.1); Platelet Count Result 276 k/mm3 (150-375); Red Blood Count 6.01 M/mm3 (4.6-6.20); Red Cell Distribution Width 12.6 % (11.5-14.5)
--- NOTE | 2022-04-20 08:28 | ED.NAVMDI ---
HPI - Nausea/Vomiting/Diarrhea General Chief complaint: Nausea/Vomiting/Diarrhea Stated complaint: dry heaves, weakness Time Seen by Provider: 04/20/22 08:28 Source: patient and family Mode of arrival: ambulatory Limitations: no limitations History of Present Illness HPI Narrative: Patient is 76 years old white male came to the emergency room by private car with his complaining of nausea, dry heaves, left upper quadrant pain started 48 hours ago, intermittent. Patient was seen in our facility 1-1/2-week ago with the same symptoms and was discharged without a specific diagnosis. He denies any fever, chills, diarrhea, constipation or urinary symptoms. 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 Patient report intermittent cramps of the hands and legs over the last few days Related Data Home Medications Medication Instructions Recorded Confirmed atorvastatin 10 mg tablet 10 mg PO DAILY 02/21/22 04/07/22 carvedilol 25 mg tablet 25 mg PO DAILY 02/21/22 04/07/22 fenofibrate nanocrystallized 145 145 mg PO DAILY 02/21/22 04/07/22 mg tablet multivitamin 1 tablet PO DAILY 04/07/22 04/07/22 Allergies Allergy/AdvReac Type Severity Reaction Status Date / Time No Known Allergies Allergy Verified 04/20/22 08:01 Review of Systems Review of Systems: All systems reviewed & are unremarkable except as noted in HPI and below PMFSH Past Medical History Medical History Abnormal CT scan, gastrointestinal tract Acute on chronic renal failure Chronic kidney disease, stage 3a Crohn disease Dehydration Hyperlipidemia Hypertension Perianal fistula due to Crohn's disease fistula repair times 8 Surgical History Surgical History Cataract extraction status H/O ileostomy History of appendectomy History of colon resection Family History Family History Father Diabetes mellitus Hypertension Grandparent Heart problem Hypertension Social History Social History Social History: He lives with his and she is poa .He is retired from [employer]. He has 1 child . He drinks 1-2 beers a day. code status : full code Smoking packs per day: 1 Smoking cigarettes per day: 20.0 Years smoked: 30 Smoking pack-years: 30.00 Smoking status: Former smoker Tobacco type: cigarettes Smoking end date: 03/16/02 Alcohol intake: current Drinks per week: 4 Substance use: never Lack of Transportation: No Lack of Food: Never True Current Housing: I Have Housing Concerned About Future Housing: No Difficulty Paying Gas/Electric Bills: No Difficulty Paying for Meds: No Currently Unemployed: No Education: High School Diploma/GED Difficulty w/ Childcare or Family Care: No Gender identity (if verbalized by the patient): Male Sexual Orientation (if Verbalized by the Patient): Straight or Heterosexual Spiritual care concerns: No Exam Narrative: General appearance: Well-developed, well-nourished Skin: Normal color Head: Normocephalic, nontraumatic Eyes: Clear conjunctiva ENT: Oropharynx normal, ears normal, nose normal Neck: Supple, nontender Chest and respiratory: Airway patent, no respiratory distress, no accessory muscle use Heart: Regular rate/rhythm Abdomen: Soft, moderate tenderness left upper quadrant, no organomegaly, quiet bowel sounds Vascular: Normal peripheral pulses, normal capillary refill. Musculoskeletal: Normal range of motion, nontender back Neurologic: Alert and oriented ?3, ECHOCARDIOGRAPHY TECHNOLOGIST is normal as tested, no gross motor deficit
[2022-04-20 08:36] LABS: Alanine Aminotransferase 29 U/L (6-50); Albumin Level 5.5 g/dL (3.5-5.1); Alkaline Phosphatase 83 U/L (38-126); Anion Gap 20 mmol/L (8-16); Aspartate Amino Transferase 29 U/L (17-59); Blood Urea Nitrogen 100 mg/dL (9-20); Carbon Dioxide 9 mmol/L (22-30); Chloride 98 mmol/L (98-107); Estimated CRCL calculation 13 ml/min; Estimated Glomerular Filt Rate 13; Glucose 201 mg/dL (65-110); Lipase 237 U/L (23-300); Potassium 6.3 mmol/L (3.4-5.0); Sodium 127 mmol/L (137-145)
[2022-04-20] MEDS: SODIUM CHLORIDE 0.9% IV 2,000 ML 999 ML IV CONT (08:40)
[2022-04-20] MEDS: ONDANSETRON INJ 4 MG/2 ML VIAL IV PUSH (08:40)
[2022-04-20] MEDS: HYDROmorphone HCL INJ (*CRX) 1 MG/ML SYR 0.5 MG IV PUSH (08:43)
[2022-04-20 09:04] LABS: Magnesium 1.7 mg/dL (1.6-2.3)
[2022-04-20] MEDS: SODIUM BICARBONATE 8.4% 50 MEQ/50 ML SYRINGE IV PUSH (09:10)
[2022-04-20] MEDS: INSULIN HUMAN REGULAR (*BKC) 100 UNITS/ML 10 UNITS IV PUSH (09:11)
[2022-04-20] MEDS: DEXTROSE 50% 25 GM/50 ML SYRINGE IV PUSH (09:11)
[2022-04-20 10:50] LABS: Appearance Urine Clear (Clear); Bilirubin Urine Negative (Negative); Blood Urine Negative (Negative); Color Urine Yellow (Yellow); Glucose Urine UA 2+ mg/dL (Negative); Ketones Urine Negative (Negative); Leukocyte Esterase Ur Negative LEU/UL (Negative); Nitrate Urine Negative (Negative); Protein Urine Negative (Negative); Specific Grav Ur 1.016 (1.001-1.035); Urobilinogen Urine 0.2 mg/dL (<2.0)
[2022-04-20 10:52] LABS: Add Urine Microscopic? NO
[2022-04-20] MEDS: SODIUM ZIRCONIUM CYCLOSILICATE 10 GM POWD.PACK PO (11:19)
--- NOTE | 2022-04-20 12:40 | PC.NURSE ---
This patient, Jayy Collins, was admitted to 3 Med Surg Room 315-01. Patient/family oriented to hospital policies and general routines including ID bracelet, bed and alarms, visiting hours, pain management, procedures, bathroom and other care routines, personal items, smoking policy, room service/diet, and visiting hours. Information on how to activate the Rapid Response Team has been discussed. Patient/Family are encouraged to report perceived risks to care and to ask questions if they do not understand what they are told or what they should do.
[2022-04-20] MEDS: SODIUM CHLORIDE 0.9% IV 1,000 ML 200 ML IV CONT ×2 (12:48→18:19)
[2022-04-21] MEDS: SODIUM CHLORIDE 0.9% IV 1,000 ML 200 ML IV CONT (04:07)
[2022-04-21 06:00] VITALS: BP 142/61; PULSE 72; RESP 18; TEMP 36.2; O2SAT 100
[2022-04-21 07:20] LABS: Anion Gap 6 mmol/L (8-16); Blood Urea Nitrogen 57 mg/dL (9-20); Calcium 7.8 mg/dL (8.4-10.2); Carbon Dioxide 19 mmol/L (22-30); Chloride 111 mmol/L (98-107); Estimated CRCL calculation 30 ml/min; Estimated Glomerular Filt Rate 37; Glucose 92 mg/dL (65-110); Potassium 4.1 mmol/L (3.4-5.0); Sodium 136 mmol/L (137-145)
[2022-04-21] MEDS: SODIUM CHLORIDE 0.9% IV 1,000 ML 75 ML IV CONT (10:15)
[2022-04-21 10:16] VITALS: PULSE 72
[2022-04-21] MEDS: FENOFIBRATE NANOCRYSTALLIZED 145 MG TABLET PO (10:16)
[2022-04-21] MEDS: ATORVASTATIN 10 MG TABLET PO (10:16)
[2022-04-21 10:59] LABS: Basophils Percent Auto 0.5 % (0.2-1.2); Eosinophils Percent Auto 0.6 % (0-4.4); Hematocrit 39.7 % (42.0-52.0); Hemoglobin 13.9 g/dL (14.0-18.0); Immature Granulocyte Absolute 0.02 K/mm3 (0.00-0.031); Immature Granulocyte Percent A 0.3 % (0-0.5); Lymphocytes Absolute Auto 1.14 K/mm3 (0.9-3.2); Lymphocytes Percent Auto 17.6 % (18.3-44.2); Mean Corpuscular Hemoglobin 30.8 pg (26-34); Mean Corpuscular Volume 87.8 fl (80-100); Mean Platelet Volume 9.7 fl (7.4-10.4); Monocytes Absolute Auto 0.5 K/mm3 (0.1-0.6); Neutrophils Absolute Auto 4.7 K/mm3 (1.3-6.7); Platelet Count Result 163 k/mm3 (150-375); Red Blood Count 4.52 M/mm3 (4.6-6.20); Red Cell Distribution Width 12.8 % (11.5-14.5); White Blood Count 6.5 K/mm3 (4.5-10.0)
--- NOTE | 2022-04-21 11:15 | PM.IMHP ---
H&P: HPI History of Present Illness Date/Time: 04/21/22 11:15 Chief Complaint: Patient is 76 years old white male came to the emergency room by private car with his complaining of nausea, dry heaves, left upper quadrant pain started 48 hours ago, intermittent.? Patient was seen in our facility 1-1/2-week ago with the same symptoms and was discharged without a specific diagnosis.? He denies any fever, chills, diarrhea, constipation or urinary symptoms.? History of colectomy and currently have ileostomy.? Patient report intermittent cramps of the hands and legs over the last few days Review of Systems Review of Systems: 10 pt ros neg PMFSH Past Medical History Medical History Abnormal CT scan, gastrointestinal tract Acute on chronic renal failure Chronic kidney disease, stage 3a Crohn disease Dehydration Hyperlipidemia Hypertension Perianal fistula due to Crohn's disease fistula repair times 8 Surgical History Surgical History Cataract extraction status H/O ileostomy History of appendectomy History of colon resection Family History Family History Father Diabetes mellitus Hypertension Grandparent Heart problem Hypertension Social History Social History Social History: He lives with his and she is poa .He is retired from [employer]. He has 1 child . He drinks 1-2 beers a day. code status : full code Smoking packs per day: 1 Smoking cigarettes per day: 20.0 Years smoked: 40 Smoking pack-years: 40.00 Smoking status: Former smoker Tobacco type: cigarettes Smoking end date: 03/16/02 Alcohol intake: current Drinks per week: 6 Substance use: never Substance use type: does not use Lack of Transportation: No Lack of Food: Never True Current Housing: I Have Housing Concerned About Future Housing: No Difficulty Paying Gas/Electric Bills: No Difficulty Paying for Meds: No Currently Unemployed: No Education: High School Diploma/GED Difficulty w/ Childcare or Family Care: No Gender identity (if verbalized by the patient): Male Sexual Orientation (if Verbalized by the Patient): Straight or Heterosexual Spiritual care concerns: No Meds Home Medications and Allergies Home Medications Medication Instructions Recorded Confirmed Type atorvastatin 10 mg tablet 10 mg PO DAILY 02/21/22 04/20/22 History carvedilol 25 mg tablet 25 mg PO DAILY 02/21/22 04/20/22 History fenofibrate nanocrystallized 145 145 mg PO DAILY 02/21/22 04/20/22 History mg tablet lisinopril 10 mg tablet 10 mg PO DAILY #90 tabs 03/29/22 04/20/22 Rx multivitamin 1 tablet PO DAILY 04/07/22 04/20/22 History Allergies Allergy/AdvReac Type Severity Reaction Status Date / Time No Known Allergies Allergy Verified 04/20/22 08:01 Vital Signs Vital Signs - 24 hr 04/20/22 11:19 04/20/22 11:32 04/20/22 12:00 Temperature 97.5 F L Pulse Rate 99 93 96 Respiratory Rate 20 15 16 Blood Pressure 133/56 L 148/60 H Pulse Oximetry 100 100 100 Oxygen Delivery 04/20/22 14:00 04/20/22 22:00 04/21/22 06:00 Temperature 97.8 F 97.9 F 97.1 F L Pulse Rate 96 79 72 Respiratory Rate 16 18 18 Blood Pressure 133/56 L 130/56 L 142/61 H Pulse Oximetry 100 100 100 Oxygen Delivery 04/21/22 08:00 04/21/22 10:16 Temperature Pulse Rate 72 Respiratory Rate Blood Pressure Pulse Oximetry Oxygen Delivery Room Air H&P: Results Labs Labs: Short CBC 04/21/22 Range/Units 06:37 WBC 6.5 (4.5-10.0) K/mm3 Hgb 13.9 L D (14.0-18.0) g/dL Hct 39.7 L (42.0-52.0) % Plt Count 163 (150-375) k/mm3 BMP 04/21/22 06:42 Sodium 136 L Potassium 4.1 Chloride 111 H Carbon Dioxide 19 L BUN 57 H D Creatinine 1.80 H Glucose 92 Calcium 7.8 L
--- NOTE | 2022-04-21 11:20 | PM.DS ---
DS: Admitting Diagnosis Discharge Date April 21, 2022 Admitting Diagnosis Acute kidney injury dehydration DS: Discharge Diagnosis Discharge Diagnosis (1) LAILA (acute kidney injury): Code(s): N17.9 - Acute kidney failure, unspecified Status: Acute Assessment and Plan: Likely from lisinopril. With IV fluids exam improved. Patient feels much better. (2) Nausea: Code(s): R11.0 - Nausea Status: Acute (3) Acute hyperkalemia: Code(s): E87.5 - Hyperkalemia Status: Acute (4) Abdominal pain: Code(s): R10.9 - Unspecified abdominal pain Status: Acute (5) Acute on chronic renal failure: Code(s): N17.9 - Acute kidney failure, unspecified; N18.9 - Chronic kidney disease, unspecified Status: Acute DS: Summary Hospital Course Hospital Course: Patient admitted for acute kidney injury secondary dehydration and likely lisinopril. Patient can be discharged home but will hold tight lisinopril. Follow-up with Nephrology and his primary care physician. He is tolerating a diet and feels as baseline Time Spent with Patient Time attestation: Total time spent providing and/or coordinating discharge services: Exam Narrative: General appearance: Well-developed, well-nourished Skin: Normal color Head: Normocephalic, nontraumatic Eyes: Clear conjunctiva ENT: Oropharynx normal, ears normal, nose normal Neck: Supple, nontender Chest and respiratory: Airway patent, no respiratory distress, no accessory muscle use Heart: Regular rate/rhythm Abdomen: Soft, moderate tenderness left upper quadrant, no organomegaly, quiet bowel sounds Vascular: Normal peripheral pulses, normal capillary refill. Musculoskeletal: Normal range of motion, nontender back Neurologic: Alert and oriented ?3, MEDICAL TYPIST is normal as tested, no gross motor deficit DS: Data Data Completed and Pending Labs on day of discharge: Labs from last 24 hours 04/21/22 04/21/22 06:42 06:37 WBC 6.5 RBC 4.52 L Hgb 13.9 L D Hct 39.7 L MCV 87.8 MCH 30.8 MCHC 35.0 RDW 12.8 Plt Count 163 MPV 9.7 Immature Gran % (Auto) 0.3 Neut % (Auto) 73.0 Lymph % (Auto) 17.6 L [place] % (Auto) 8.0 Eos % (Auto) 0.6 Baso % (Auto) 0.5 Lymph # (Auto) 1.14 [place] # (Auto) 0.5 Eos # (Auto) 0.0 Baso # (Auto) 0.0 Abs Immat Gran (auto) 0.02 Absolute Neuts (auto) 4.7 Absolute Nucleated RBC 0.0 Nucleated RBC % 0.0 Sodium 136 L Potassium 4.1 Chloride 111 H Carbon Dioxide 19 L Anion Gap 6 L BUN 57 H D Creatinine 1.80 H Estim Creat Clear Calc 30 Estimated GFR 37 L Glucose 92 Calcium 7.8 L Discharge Plan Discharge Attending physician on discharge: Shar Maher Consulting providers: Parth Elliott Discharging Clinician: Shar Maher Patient Disposition: Home, Self-Care Activity: no preference Diet: as tolerated Patient Instructions: Antibiotic Form Stand Alone Forms: General Discharge Information Follow-up/Referrals: [facility] Elliott [facility]Primary Care Provider[facility] - Discharge Medications: Continued fenofibrate nanocrystallized 145 mg tablet 145 mg PO DAILY carvedilol 25 mg tablet 25 mg PO DAILY Rx Instructions: must administer with a meal/food atorvastatin 10 mg tablet 10 mg PO DAILY multivitamin Tablet 1 tablet PO DAILY Discontinued lisinopril 10 mg tablet 10 mg PO DAILY Qty: 90 3RF Hold Instructions: Please take your blood pressure in the am and pm, record findings, report them to Dr. Manzanares and will instruct restart Date of admission: 04/20/22
[2022-04-21 11:32] LABS: Glucose Point of Care 94 mg/dl (65-105)
== END 2022-04-21 12:45 | disposition home or self-care (01) | DRG 683 ==
LOC: ANHED 08:28 → ANH3MEDSUR 11:04
PROVIDERS: Admitting Provider Chiropractor; Emergency Provider Emergency Medicine; PCP Physician Assistant; Visit Provider Chiropractor
DX: N17.9 Acute kidney failure, unspecified (principal); K50.90 Crohn's disease, unspecified, without complications; E87.5 Hyperkalemia; E86.0 Dehydration; I12.9 Hypertensive chronic kidney disease with stage 1 through stage 4 chronic kidney disease, or unspecified chronic kidney disease; N18.31 Chronic kidney disease, stage 3a; E78.5 Hyperlipidemia, unspecified; Z93.2 Ileostomy status; Z98.49 Cataract extraction status, unspecified eye; Z90.49 Acquired absence of other specified parts of digestive tract; Z87.891 Personal history of nicotine dependence
CPT/HCPCS: 36415; 74176; 80048; 80053; 81003; 82948; 83690; 83735; 85025; 96361; 96374; 96375; 99285; A9270; J1170; J1815; J2405; J7030

== ENCOUNTER 2023-01-11 11:11 | Outpatient (CLI) | payer MEDICARE, SELFPAY ==
--- NOTE | ~2023-01-11 | US_ITS ---
US renal BI 01/11/2023 12:05 Procedure: Realtime transabdominal ultrasound of the kidneys and bladder. Indication: Stage III chronic kidney disease. Comparison: CT dated 04/20/2022 Findings: Renal echotexture is normal bilaterally without hydronephrosis, contour deforming mass or r enal calculus. There are bilateral renal cysts measuring 8 mm on the right and 2.7 cm on the left. Th e right kidney measures 10.8 cm and left kidney measures 10.2 cm. Bladder within normal limits. Ther e is fatty infiltration of the liver. Impression: 1: Bilateral renal cysts. Reviewed, dictated and finalized at [facility]. KLOAD CHECKER Impression: 1: Bilateral renal cysts.
== END 2023-01-11 11:12 | disposition home or self-care (01) ==
LOC: ANHIMG 11:16
PROVIDERS: PCP Physician Assistant; Visit Provider Internal Medicine Nephrology
DX: N18.32 Chronic kidney disease, stage 3b (principal); N28.1 Cyst of kidney, acquired
CPT/HCPCS: 76775

== ENCOUNTER 2023-01-31 09:51 | Outpatient (CLI) | payer MEDICARE, SELFPAY ==
--- NOTE | ~2023-01-31 | US_ITS ---
EXAMINATION: US retroperitoneal duplex ltd DATE: 01/31/2023 10:38 INDICATION: Stage IIIB chronic kidney disease TECHNIQUE: Multiple grayscale, color Doppler, and pulsed Doppler images of the kidneys and renal ketty oleg were obtained. COMPARISON: None. FINDINGS: The aorta peak systolic velocity is 95 cm/s. The right renal artery peak systolic velocity is 141 cm/ s in the proximal segment, 141 cm/s in the mid segment, and 159 cm/s in the distal segment. The left renal artery peak systolic velocity is 159 cm/s in the proximal segment, 146 cm/s in the mid segment, and 123 cm/s in the distal segment. IMPRESSION: 1. No Doppler evidence of renal artery stenosis. Reviewed, dictated and finalized at [facility]. UCTION SCHEDULER
== END 2023-01-31 09:52 | disposition home or self-care (01) ==
LOC: ANHIMG 09:54
PROVIDERS: PCP Physician Assistant; Visit Provider Internal Medicine Nephrology
DX: I12.9 Hypertensive chronic kidney disease with stage 1 through stage 4 chronic kidney disease, or unspecified chronic kidney disease (principal); N18.32 Chronic kidney disease, stage 3b
CPT/HCPCS: 93976